=== PATIENT | female | born 1955 ===

== ENCOUNTER 2020-08-25 06:32 | Inpatient (IN) ==
[2020-08-25] MEDS ORDERED: 0.9 % Sodium Chloride 1,000 ML IVC ONE (06:52)
[2020-08-25] MEDS ORDERED: Ondansetron 4 MG/2 ML VIAL IVP ONE (06:52)
[2020-08-25 07:05] LABS: Basophils % 0.2 %; Hematocrit 22.5 % (35.3-44.9); Hemoglobin 6.7 g/dL (11.5-15.4); Immature Granulocytes % 3.9 % (0-4); Lymphocytes # 1.1 K/mcL (0.6-4.6); Mean Corpuscular HGB Conc 29.8 g/dL (31.6-35.5); Mean Platelet Volume 10.5 fL (9.4-12.4); Monocytes # 0.7 K/mcL (0.0-1.3); Monocytes % 10.4 %; Neutrophils # 4.4 K/mcL (1.6-8.9); Nucleated Red Blood Cells 0.5 /100 WBC (0); Platelet Count 335 K/mcL (140-400); Red Blood Count 2.68 M/mcL (3.82-4.97); Red Cell Distribution Width 17.7 % (11.5-14.5); Segmented Neutrophils % 68.5 %; White Blood Count 6.4 K/mcL (4.3-11.1)
[2020-08-25] MEDS ORDERED: Isovue-370 500 ML BOTTLE IVP ONE (07:08)
[2020-08-25 07:22] LABS: Platelet Estimate Normal (Normal)
[2020-08-25 07:23] LABS: Anisocytosis 1+ (Not Present)
[2020-08-25 07:26] LABS: Alanine Aminotransferase 58 Units/L (7-52); Albumin/Globulin Ratio 0.9 (1.1-2.2); Alkaline Phosphatase 158 Units/L (34-104); Aspartate Amino Transferase 78 Units/L (13-39); BUN/Creatinine Ratio 31 (6-26); Bilirubin,Indirect 0.2 mg/dL (0.0-1.0); Bilirubin,Total 0.2 mg/dL (0.3-1.0); Blood Urea Nitrogen 18 mg/dL (8-23); Calcium 8.1 mg/dL (8.6-10.3); Carbon Dioxide 22 mEq/L (23-29); Chloride 108 mEq/L (98-107); Globulin 3.4 g/dL (2.4-3.5); Glucose 125 mg/dL (70-105); Lipase 17 Units/L (11-82); Osmolality,Calculated 293 (280-300); Potassium 3.3 mEq/L (3.5-5.1); Sodium 140 mEq/L (136-145); Total Protein 6.4 g/dL (6.4-8.9); eGFR For African Americans > 60 (> 60); eGFR For Non-African Americans > 60 (> 60)
[2020-08-25 08:13] LABS: Bacteria,Urine Few per hpf (None-Few); Bilirubin,Urine Negative (Negative); Blood,Urine Negative (Negative); Clarity,Urine Turbid (Clear); Color,Urine Yellow (Yellow); Glucose,Urine (UA) Normal (Normal); Hyaline Casts,Urine Few per lpf (None Seen); Ketones,Urine Negative (Negative); Leukocyte Esterase,Urine Moderate (Negative); Mucus,Urine Moderate per lpf (None-Few); Nitrite,Urine Negative (Negative); Protein,Urine 50 mg/dL (Neg-Trace); Specific Gravity,Urine 1.025 (1.010-1.025); Squamous Epithelial Cell,Urine Few per hpf (None-Few); Urobilinogen,Urine Normal (Normal); WBC,Urine 15-30 per hpf (0-3)
[2020-08-25] MEDS ORDERED: cefTRIAXone 1,000 MG in Water for inj. (sterile) 10 ML IVP ONE (08:53)
[2020-08-25] MEDS ORDERED: Dexamethasone 4 MG/ML VIAL IVP STA (08:53)
[2020-08-25] MEDS ORDERED: Azithromycin 500 MG in 0.9 % Sodium Chloride 250 ML IVPB ONE (08:53)
[2020-08-25] MEDS ORDERED: Naloxone 0.4 MG/ML INJ IVP PRN (09:30)
[2020-08-25] MEDS ORDERED: Ondansetron 4 MG/2 ML VIAL IVP PRN (09:30)
[2020-08-25] MEDS ORDERED: 0.9 % Sodium Chloride w KCl 20 MEQ/1,000 ML MLS IVC SCH (09:30)
[2020-08-25] MEDS ORDERED: Melatonin 3 MG TABLET PO PRN (09:45)
[2020-08-25] MEDS: Pantoprazole 40 MG VIAL IVP SCH ×2 (13:06→18:28)
[2020-08-25] MEDS ORDERED: 0.9 % Sodium Chloride 250 ML ONE (13:07)
[2020-08-25 13:45] LABS: Hematocrit 24.3 % (35.3-44.9); Hemoglobin 7.2 g/dL (11.5-15.4)
[2020-08-25] MEDS ORDERED: traZODone 50 MG TABLET PO PRN (22:43)
[2020-08-26 01:28] LABS: Hematocrit 26.9 % (35.3-44.9); Hemoglobin 7.9 g/dL (11.5-15.4)
[2020-08-26 01:29] LABS: Mean Platelet Volume 10.8 fL (9.4-12.4); Nucleated Red Blood Cells 0.8 /100 WBC (0)
[2020-08-26 01:31] LABS: Basophils % 0.4 %; Hemoglobin 7.8 g/dL (11.5-15.4); Immature Granulocytes % 5.4 % (0-4); Lymphocytes % 20.6 %; Mean Corpuscular HGB Conc 28.9 g/dL (31.6-35.5); Mean Corpuscular Hemoglobin 25.2 pg (28.0-33.3); Mean Corpuscular Volume 87.4 fL (83.0-100.0); Monocytes # 0.5 K/mcL (0.0-1.3); Neutrophils # 3.2 K/mcL (1.6-8.9); Platelet Count 352 K/mcL (140-400); Red Blood Count 3.09 M/mcL (3.82-4.97); Red Cell Distribution Width 17.3 % (11.5-14.5); Segmented Neutrophils % 64.6 %
[2020-08-26 01:59] LABS: Anisocytosis 1+ (Not Present); Hypochromasia Present (Not Present)
[2020-08-26 02:00] LABS: Platelet Estimate Normal (Normal)
[2020-08-26 02:10] LABS: BUN/Creatinine Ratio 26 (6-26); Blood Urea Nitrogen 14 mg/dL (8-23); Calcium 7.7 mg/dL (8.6-10.3); Carbon Dioxide 17 mEq/L (23-29); Chloride 111 mEq/L (98-107); Ferritin 45 ng/mL (10-120); Glucose 136 mg/dL (70-105); Iron < 10 mcg/dL (50-170); Osmolality,Calculated 293 (280-300); Phosphorous 2.8 mg/dL (2.7-4.5); Potassium 3.9 mEq/L (3.5-5.1); Sodium 140 mEq/L (136-145); Transferrin 199 mg/dL (203-362); eGFR For African Americans > 60 (> 60); eGFR For Non-African Americans > 60 (> 60)
[2020-08-26 02:15] LABS: Folate > 22.3 ng/mL (3.0-16.0); Vitamin B12 1188 pg/mL (250-1100)
[2020-08-26] MEDS: Pantoprazole 40 MG VIAL IVP SCH ×2 (06:19→17:26)
[2020-08-26 06:51] LABS: Hematocrit 24.3 % (35.3-44.9)
[2020-08-26] MEDS: Famotidine 20 MG TABLET PO SCH (08:23)
[2020-08-26] MEDS ORDERED: Dextrose Gel 15 GM/37.5 ML TUBE PO PRN ×2 (08:50)
[2020-08-26] MEDS ORDERED: D5% in Water 1,000 ML IVC PRN (08:50)
[2020-08-26] MEDS ORDERED: *HR* Dextrose 50 % in Water (Vial) 50 ML VIAL IVP PRN (08:50)
[2020-08-26 10:11] LABS: ABG Base Excess -3 mEq/L (-2 to 3); ABG HCO3 21 mEq/L (21-27); ABG Oxygen Saturation 93 % (95-98); ABG PCO2 32 mmHg (35-45); ABG PH 7.43 pH Units (7.32-7.45); ABG PO2 66 mmHg (85-104); ABG TCO2 22 mEq/L (20-26)
[2020-08-26 10:13] LABS: Basophils % 0.1 %; Hemoglobin 7.3 g/dL (11.5-15.4)
[2020-08-26 10:14] LABS: Immature Granulocytes % 2.9 % (0-4); Lymphocytes % 14.8 %; Mean Corpuscular HGB Conc 29.2 g/dL (31.6-35.5); Mean Corpuscular Hemoglobin 25.7 pg (28.0-33.3); Mean Platelet Volume 10.7 fL (9.4-12.4); Monocytes # 0.5 K/mcL (0.0-1.3); Monocytes % 7.7 %; Neutrophils # 5.1 K/mcL (1.6-8.9); Nucleated Red Blood Cells 0.3 /100 WBC (0); Platelet Count 341 K/mcL (140-400); Red Blood Count 2.84 M/mcL (3.82-4.97); Red Cell Distribution Width 17.2 % (11.5-14.5); Segmented Neutrophils % 74.5 %; White Blood Count 6.9 K/mcL (4.3-11.1)
[2020-08-26] MEDS ORDERED: 0.9 % Sodium Chloride 250 ML ONE (10:22)
[2020-08-26 10:25] LABS: INR 1.1
[2020-08-26 10:27] LABS: Acetaminophen < 10 mcg/mL (10-20); Activated Partial Thrombo Time 24.4 Seconds (26.0-36.0); Bilirubin,Direct 0.1 mg/dL (0.0-0.2); Bilirubin,Indirect 0.1 mg/dL (0.0-1.0); Bilirubin,Total 0.2 mg/dL (0.3-1.0); Salicylate < 2.5 mg/dL (15.0-30.0)
[2020-08-26 10:28] LABS: C-Reactive Protein 87 mg/L (Less than 10); Lactate Dehydrogenase 267 Units/L (140-271)
[2020-08-26 10:46] LABS: Ferritin 40 ng/mL (10-120)
[2020-08-26 11:01] LABS: Anisocytosis 1+ (Not Present); Hypochromasia Present (Not Present); Macrocytosis Present (Not Present); Microcytosis Present (Not Present); Platelet Estimate Normal (Normal)
[2020-08-26] MEDS: Ipratropium 1 PUFF INHALER IH SCH ×3 (11:01→21:35)
[2020-08-26] MEDS: Saline Nasal Spray 44 ML BOTTLE NS SCH ×4 (12:52→20:02)
[2020-08-26] MEDS: Multivit/Ca/Min/Fe/FA 1 TAB TABLET PO SCH (13:15)
[2020-08-26] MEDS: Dexamethasone 4 MG/ML VIAL IVP SCH (13:16)
[2020-08-26] MEDS: Calcium Gluconate 1gm/50mL 1 GM/50 ML BAG IVPB SCH ×2 (13:17→14:57)
[2020-08-26] MEDS: Artificial Tears SOLN 15 ML BOTTLE BOTH EYES SCH ×2 (13:17→19:53)
[2020-08-26 15:05] LABS: Hematocrit 29.2 % (35.3-44.9); Hemoglobin 8.8 g/dL (11.5-15.4)
[2020-08-26] MEDS: Furosemide 40 MG TABLET PO SCH (19:49)
[2020-08-27] MEDS: Ipratropium 1 PUFF INHALER IH SCH ×4 (03:31→22:04)
[2020-08-27] MEDS: Saline Nasal Spray 44 ML BOTTLE NS SCH ×6 (04:32→21:09)
[2020-08-27] MEDS: Pantoprazole 40 MG VIAL IVP SCH ×2 (05:33→17:29)
[2020-08-27] MEDS: Famotidine 20 MG TABLET PO SCH (08:31)
[2020-08-27] MEDS: Multivit/Ca/Min/Fe/FA 1 TAB TABLET PO SCH (08:31)
[2020-08-27] MEDS: Dexamethasone 4 MG/ML VIAL IVP SCH (08:31)
[2020-08-27] MEDS: Furosemide 40 MG TABLET PO SCH (08:31)
[2020-08-27] MEDS: Artificial Tears SOLN 15 ML BOTTLE BOTH EYES SCH ×2 (08:47→21:12)
[2020-08-27 09:32] LABS: Basophils % 0.2 %; Hematocrit 28.5 % (35.3-44.9); Hemoglobin 8.5 g/dL (11.5-15.4); Lymphocytes # 1.4 K/mcL (0.6-4.6); Lymphocytes % 13.7 %; Mean Corpuscular HGB Conc 29.8 g/dL (31.6-35.5); Mean Corpuscular Hemoglobin 24.9 pg (28.0-33.3); Mean Corpuscular Volume 83.3 fL (83.0-100.0); Mean Platelet Volume 10.5 fL (9.4-12.4); Monocytes # 1.2 K/mcL (0.0-1.3); Monocytes % 11.6 %; Neutrophils # 7.3 K/mcL (1.6-8.9); Nucleated Red Blood Cells 0.3 /100 WBC (0); Platelet Count 385 K/mcL (140-400); Red Blood Count 3.42 M/mcL (3.82-4.97); Segmented Neutrophils % 72.5 %; White Blood Count 10.1 K/mcL (4.3-11.1)
[2020-08-27 09:53] LABS: Anisocytosis 1+ (Not Present); Platelet Estimate Normal (Normal)
[2020-08-27 09:54] LABS: Alanine Aminotransferase 41 Units/L (7-52); Albumin/Globulin Ratio 0.9 (1.1-2.2); Alkaline Phosphatase 124 Units/L (34-104); Aspartate Amino Transferase 43 Units/L (13-39); BUN/Creatinine Ratio 30 (6-26); Bilirubin,Total 0.3 mg/dL (0.3-1.0); Blood Urea Nitrogen 21 mg/dL (8-23); C-Reactive Protein 50 mg/L (Less than 10); Calcium 8.1 mg/dL (8.6-10.3); Carbon Dioxide 22 mEq/L (23-29); Chloride 109 mEq/L (98-107); Globulin 3.4 g/dL (2.4-3.5); Glucose 89 mg/dL (70-105); Lactate Dehydrogenase 281 Units/L (140-271); Magnesium 1.8 mg/dL (1.6-2.6); Osmolality,Calculated 296 (280-300); Phosphorous 3.1 mg/dL (2.7-4.5); Potassium 3.5 mEq/L (3.5-5.1); Sodium 142 mEq/L (136-145); Total Protein 6.4 g/dL (6.4-8.9); eGFR For African Americans > 60 (> 60); eGFR For Non-African Americans > 60 (> 60)
[2020-08-27 10:11] LABS: Ferritin 40 ng/mL (10-120)
[2020-08-27] MEDS: *HR* OxyCODONE/APAP 5/325 TABLET PO PRN ×2 (11:01→20:54)
[2020-08-28] MEDS: Saline Nasal Spray 44 ML BOTTLE NS SCH ×6 (00:32→21:12)
[2020-08-28] MEDS: Ipratropium 1 PUFF INHALER IH SCH ×4 (04:12→22:08)
[2020-08-28] MEDS: Pantoprazole 40 MG VIAL IVP SCH (06:35)
[2020-08-28] MEDS: Dexamethasone 4 MG/ML VIAL IVP SCH (09:28)
[2020-08-28] MEDS: Artificial Tears SOLN 15 ML BOTTLE BOTH EYES SCH ×2 (09:29→21:12)
[2020-08-28] MEDS: Multivit/Ca/Min/Fe/FA 1 TAB TABLET PO SCH (09:30)
[2020-08-28] MEDS: Famotidine 20 MG TABLET PO SCH (12:50)
[2020-08-28] MEDS ORDERED: Lidocaine -MPF 2% 2 ML VIAL ONE (14:59)
[2020-08-28] MEDS: Furosemide 40 MG TABLET PO SCH (16:41)
[2020-08-29] MEDS: Saline Nasal Spray 44 ML BOTTLE NS SCH ×2 (01:55→03:47)
[2020-08-29] MEDS: Ipratropium 1 PUFF INHALER IH SCH (03:40)
[2020-08-29 05:27] LABS: Basophils % 0.1 %; Hematocrit 30.4 % (35.3-44.9); Hemoglobin 9.1 g/dL (11.5-15.4); Immature Granulocytes % 1.9 % (0-4); Lymphocytes # 1.1 K/mcL (0.6-4.6); Lymphocytes % 12.2 %; Mean Corpuscular HGB Conc 29.9 g/dL (31.6-35.5); Mean Corpuscular Hemoglobin 24.9 pg (28.0-33.3); Mean Corpuscular Volume 83.1 fL (83.0-100.0); Mean Platelet Volume 10.8 fL (9.4-12.4); Monocytes # 1.3 K/mcL (0.0-1.3); Monocytes % 13.9 %; Neutrophils # 6.6 K/mcL (1.6-8.9); Nucleated Red Blood Cells 0.2 /100 WBC (0); Platelet Count 350 K/mcL (140-400); Red Blood Count 3.66 M/mcL (3.82-4.97); Red Cell Distribution Width 17.5 % (11.5-14.5); Segmented Neutrophils % 71.9 %; White Blood Count 9.2 K/mcL (4.3-11.1)
[2020-08-29 05:35] LABS: INR 1.2; Prothrombin Time 13.4 Seconds (9.4-12.1)
[2020-08-29 05:52] LABS: Alanine Aminotransferase 48 Units/L (7-52); Albumin 3.1 g/dL (3.5-5.7); Albumin/Globulin Ratio 0.9 (1.1-2.2); Alkaline Phosphatase 131 Units/L (34-104); Aspartate Amino Transferase 43 Units/L (13-39); BUN/Creatinine Ratio 32 (6-26); Bilirubin,Total 0.3 mg/dL (0.3-1.0); Blood Urea Nitrogen 24 mg/dL (8-23); Calcium 8.2 mg/dL (8.6-10.3); Carbon Dioxide 22 mEq/L (23-29); Chloride 107 mEq/L (98-107); Globulin 3.4 g/dL (2.4-3.5); Glucose 135 mg/dL (70-105); Lactate Dehydrogenase 266 Units/L (140-271); Magnesium 1.9 mg/dL (1.6-2.6); Osmolality,Calculated 294 (280-300); Phosphorous 1.8 mg/dL (2.7-4.5); Potassium 3.4 mEq/L (3.5-5.1); Sodium 139 mEq/L (136-145); Total Protein 6.5 g/dL (6.4-8.9); eGFR For African Americans > 60 (> 60); eGFR For Non-African Americans > 60 (> 60)
[2020-08-29 05:55] LABS: Anisocytosis 1+ (Not Present); Hypochromasia Present (Not Present); Platelet Estimate Normal (Normal)
[2020-08-29 06:09] LABS: Ferritin 43 ng/mL (10-120)
[2020-08-29 06:15] VITALS: BP 150/78
[2020-08-29] MEDS ORDERED: Isovue-370 500 ML BOTTLE IVP ONE (06:27)
[2020-08-29] MEDS ORDERED: *HR* Labetalol 20 MG/4 ML SYRINGE IVP ONE ×2 (06:46)
[2020-08-29] MEDS ORDERED: niCARdipine 20 MG/200 ML MLS IVC ONE (06:46)
[2020-08-29] MEDS ORDERED: Dexmedetomidine HCl 400 MCG/100 ML MLS IVC ONE (06:57)
[2020-08-29] MEDS ORDERED: FentaNYL (PF) 1,000 MCG/100 ML IV.SOLN IVC SCH (07:00)
[2020-08-29 07:49] LABS: C-Reactive Protein 113 mg/L (Less than 10)
[2020-08-29] MEDS ORDERED: *HR* Midazolam HCl 5 MG/5 ML VIAL IVP ONE (08:29)
[2020-08-29] MEDS ORDERED: *HR* Succinylcholine 200 MG/10 ML VIAL IVP ONE (08:29)
[2020-08-29] MEDS ORDERED: *HR* Midazolam HCl 2 MG/2 ML VIAL IVP ONE (08:29)
== END 2020-08-29 08:30 | disposition short-term general hospital (02) | DRG 177 ==
LOC: EMEROOARM 06:32 → 3BNU 06:32 → SUATTDRO 09:31 → 3BNU 11:10 → SUATTDRO 08-26 10:19
PROVIDERS: ADMIT Internal Medicine; ATTEND Student in an Organized Health Care Education/Training Program
PROC: ENDOCBX (2020-08-28 13:00)
PROC: ENDOEBX (2020-08-28 13:00)